=== PATIENT | female | born 2000 | race Caucasian/White ===

== ENCOUNTER 2020-12-19 10:41 | Emergency (ER) | payer OTHER ==
--- NOTE | 2020-12-19 11:38 | XRAY Report ---
PROCEDURE: Ankle 3 View RT INDICATIONS: pain x 1 week, s/p roll TECHNIQUE: 3 views of the ankle were acquired. COMPARISON: None. FINDINGS: Bones: No acute fractures or dislocations. Ankle mortise is normally aligned. No suspicious bony l esions. Soft tissues: No suspicious soft tissue calcifications. IMPRESSION: No acute osseous abnormality. If there is clinical concern or persistent symptoms, addit ional imaging such as repeat radiographs or advanced imaging (e.g. CT, MRI) may be helpful for furthe r evaluation. Reviewed by: Dennis Montague MD on 12/19/2020 11:37 AM PDT Approved by: Dennis Montague MD on 12/19/2020 11:37 AM PDT Station ID: [id number]
--- NOTE | 2020-12-19 11:39 | XRAY Report ---
PROCEDURE: Foot 3 View RT INDICATIONS: pain x 1 week, s/p roll TECHNIQUE: 3 views of the foot were acquired. COMPARISON: None. FINDINGS: Bones: No acute fractures or dislocations. No suspicious bony lesions. Soft tissues: No suspicious soft tissue calcification. IMPRESSION: No acute osseous abnormality. If there is clinical concern or persistent symptoms, additional imaging such as repeat radiographs or advanced imaging (e.g. CT, MRI) may be helpful for further evaluation. Reviewed by: Dennis Montague MD on 12/19/2020 11:37 AM PDT Approved by: Dennis Montague MD on 12/19/2020 11:37 AM PDT Station ID: [id number]
--- NOTE | 2020-12-19 12:08 | ED Physician Documentation ---
History of Present Illness - Stated complaint Stated Complaint: RT ANKLE INJ - Chief complaint Chief Complaint: Trauma Ext - History obtained from History obtained from: Patient - History of Present Illness Timing: How many weeks ago (1) Pain level max: 5 Pain level now: 4 - Additonal information Additional information: Patient is a 20-year-old female who presents to the emergency department with right ankle and right foot pain today. She states that her foot was sore after doing a PRT with the [place]. She states that the pain worsened today. Worse with walking and movement, better with rest. 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 : None HEENT: None Psych: Anxiety Musculoskeletal: None Derm: None - Past Surgical History Past Surgical History: No - Present Medications Home Medications: Ambulatory Orders Medication Instructions Recorded Confirmed Mirtazapine 15 mg PO HS PRN 12/19/20 12/19/20 Sertraline [Zoloft] 50 mg PO DAILY 12/19/20 12/19/20 - Allergies Allergies/Adverse Reactions: Allergies Allergy/AdvReac Type Severity Reaction Status Date / Time No Known Drug Allergies Allergy Verified 12/19/20 10:46 - Social History Does the pt smoke?: No Smoking Status: Never smoker Does the pt drink ETOH?: No Does the pt have substance abuse?: No - Immunizations Immunizations are current?: Yes PD ED PE NORMAL - Vitals Vital signs reviewed: Yes - General General: Alert and oriented X 3, No acute distress - Derm Derm: Warm and dry - Extremities Extremities: Other (Mild tenderness to palpation over the right lateral malleolus and the base of the right fifth metatarsal. No swelling. No ecchymosis. Neurovascular intact.) - Neuro Neuro: Alert and oriented X 3 - Psych Psych: Normal mood, Normal affect Results - Vitals Vitals: Vital Signs - 24 hr 12/19/20 12/19/20 10:48 12:25 Temperature 36.9 C 37.1 C Heart Rate 80 82 Respiratory 16 16 Rate Blood Pressure 118/73 119/83 H O2 Saturation 100 100 Oxygen O2 Source Room air - Rads (name of study) R foot xray Radiology: Final report received, EMP read contemporaneously, See rad report (No acute fractures) R ankle xray Radiology: Final report received, EMP read contemporaneously, See rad report (No acute fractures) PD MEDICAL DECISION MAKING - ED course Complexity details: reviewed results, re-evaluated patient, considered differential, d/w patient ED course: No acute findings on x-ray. Likely ankle sprain. Placed in a gel splint for comfort and given crutches. Patient is able to ambulate, though has a mild limp. She states that she wants the crutches "just in case". Patient counseled regarding signs and symptoms for which I believe and urgent re-evaluation would be necessary. Patient with good understanding of and agreement to plan and is comfortable going home at this time This document was made in part using voice recognition software. While efforts are made to proofread this document, sound alike and grammatical errors may occur. Departure - Departure Disposition: 01 Home, Self Care Clinical Impression: Right ankle sprain Qualifiers: Encounter type: initial encounter Involved ligament of ankle: unspecified ligament Qualified Code(s): S93.401A - Sprain of unspecified ligament of right ankle, initial encounter Condition: Good Instructions: ED Sprain Ankle Follow-Up: your,doctor in 1 week for recheck [Other] Comments: Thankfully there are no acute findings on your x-rays today. You can use the splint as needed for comfort. You can use the crutches as needed for comfort as well. Return if you worsen. Forms: Activity restrictions Discharge Date/Time: 12/19/20 12:26
[2020-12-19 12:25] VITALS: BP 119/83
== END 2020-12-19 12:26 | disposition home or self-care (01) ==
LOC: ED 10:41
DX: S93.401A Sprain of unspecified ligament of right ankle, initial encounter (principal); X58.XXXA Exposure to other specified factors, initial encounter
CPT/HCPCS: 99282; 99283